=== PATIENT | female | born 1940 | race American Indian/Alaskan Native ===

== ENCOUNTER 2019-08-09 09:11 | Emergency (ER) | payer MEDICARE, SELFPAY ==
[2019-08-09] MEDS ORDERED: DEXTROSE 50% IN WATER (25GM) 50 ML SYRINGE IV ONE ×2 (09:51→10:22)
--- NOTE | 2019-08-09 09:52 | Cat Scan Report ---
CT HEAD WITHOUT CONTRAST HISTORY: neuro deficits <6hrs or sx present upon awakening. TECHNIQUE: Axial imaging performed from the skull apex through the skull base without the use of con trast. All CT scans at this location are performed using CT dose reduction for ALARA by means of aut omated exposure control. COMPARISON: None FINDINGS: Parenchyma: No acute intracranial hemorrhage or parenchymal abnormality.. Mild hypoattenuation thro ughout the white matter is noted and consistent with chronic microvascular ischemic disease. Ventricles: There is mild diffuse brain atrophy with commensurate ventricular enlargement which is l ikely age appropriate. Soft tissues: Soft tissues including the orbits appear normal. Bones: No acute osseous abnormality. Sinuses: Chronic mucoperiosteal thickening is noted in the left maxillary sinus. The remaining sinus es are clear. IMPRESSION: No acute abnormality. Age appropriate volume loss and chronic white matter changes. These findings were discussed with Viviana STANLEY in the emergency department at 0946 hours. Signer Name: Kaz Lindo Jr, MD Signed: 08/09/2019 9:47 AM Workstation Name: [id number]
--- NOTE | 2019-08-09 09:52 | Emergency Department Report ---
ED Neuro Deficit HPI - General Chief Complaint: Dental/Oral Stated Complaint: RT SIDE FACE NUMB/MIGRANE/WEAK Source: patient Mode of arrival: Ambulatory Limitations: No Limitations - History of Present Illness Initial Comments: [facility] Date of Service: 08/09/2019 09:30:58 Impression: angioedema Comments: 78 year old female who presents with lip swelling. Presentation is likely secondary to angioedema rather than acute stroke. Metrics: Last Known Well: 08/08/2019 22:00:00 [facility] Notification Time: 08/09/2019 09:30:10 Arrival Time: 08/09/2019 09:11:00 Stamp Time: 08/09/2019 09:30:58 Time First Login Attempt: 08/09/2019 09:37:00 Video Start Time: 08/09/2019 09:37:00 Symptoms: Lip swelling NIHSS Start Assessment Time: 08/09/2019 09:40:00 Patient is not a candidate for tPA. Patient was not deemed candidate for tPA thrombolytics because of Last Well Known Above 4.5 Hours. Video End Time: 08/09/2019 09:45:58 CT head was reviewed. Clinical Presentation is not Suggestive of Large Vessel Occlusive Disease, Patient is not a Candidate for Thrombectomy ED Physician notified of diagnostic impression and management plan on 08/09/2019 09:46:01 Our recommendations are outlined below. Recommendations: - Continue home antiplatelets and statin Dysphaghia Screen: Swallow Evaluation, Bedside NPO Until Swallow Evaluation DVT prophylaxis: Choice of Primary Team Disposition: Sign Out Sign Out: Discussed with Emergency Department Provider History of Present Illness: Patient is a 78 year old Female. Patient was brought by private transportation with symptoms of Lip swelling 78 year old female with a history of HTN on lisinopril, and prior stroke with residual right side weakness who presents to the ED because of facial swelling. Patient went to sleep normal last night and woke up this morning with swelling in the lip and eyes. There was no focal weakness noted. CT head was reviewed. Examination: 1A: Level of Consciousness - Alert; keenly responsive + 0 1B: Ask Month and Age - Both Questions Right + 0 1C: Blink Eyes & Squeeze Hands - Performs Both Tasks + 0 2: Test Horizontal Extraocular Movements - Normal + 0 3: Test Visual Marroquin - No Visual Loss + 0 4: Test Facial Palsy (Use Grimace if Obtunded) - Normal symmetry + 0 5A: Test Left Arm Motor Drift - No Drift for 10 Seconds + 0 5B: Test Right Arm Motor Drift - No Drift for 10 Seconds + 0 6A: Test Left Leg Motor Drift - No Drift for 5 Seconds + 0 6B: Test Right Leg Motor Drift - No Drift for 5 Seconds + 0 7: Test Limb Ataxia (FNF/Heel-Rock) - No Ataxia + 0 8: Test Sensation - Normal; No sensory loss + 0 9: Test Language/Aphasia - Normal; No aphasia + 0 10: Test Dysarthria - Normal + 0 11: Test Extinction/Inattention - No abnormality + 0 NIHSS Score: 0 Patient was informed the Neurology Consult would happen via TeleHealth consult by way of interactive audio and video telecommunications and consented to receiving care in this manner. Due to the immediate potential for life-threatening deterioration due to underlying acute neurologic illness, I spent 35 minutes providing critical care. This time includes time for face to face visit via telemedicine, review of medical records, imaging studies and discussion of findings with providers, the patient and/or family. Dr Chani [facility] Case [id number] - Related Data Home Medications: Home Medications Medication Instructions Recorded Confirmed Last Taken amLODIPine 10 mg PO DAILY 12/02/13 12/02/13 12/02/13 10:00 Previous Rx's Medication Instructions Recorded Last Taken Type Aspirin EC [Halfprin EC] 81 mg PO QDAY #30 tablet. 12/03/13 Unknown Rx Famotidine [Pepcid] 20 mg PO BID #60 tablet 12/03/13 Unknown Rx Simvastatin [Zocor] 10 mg PO QHS #30 tablet 12/03/13 Unknown Rx lisinopriL [Zestril TAB] 20 mg PO QDAY #30 tablet 12/03/13 Unknown Rx Allergies/Adverse Reactions: Allergies Allergy/AdvReac Type Severity Reaction Status Date / Time unknown antibiotic Allergy Unknown Uncoded 08/09/19 09:14 ED Review of Systems ROS: Stated complaint: RT SIDE FACE NUMB/MIGRANE/WEAK Other details as noted in HPI ED Past Medical Hx - Past Medical History Hx Hypertension: Yes - Surgical History Hx Appendectomy: Yes Additional Surgical History: tonsils removed - Social History Smoking Status: Current Every Day Smoker Substance Use Type: None - Medications Home Medications: Home Medications Medication Instructions Recorded Confirmed Last Taken Type amLODIPine 10 mg PO DAILY 12/02/13 12/02/13 12/02/13 10:00 History Aspirin EC [Halfprin EC] 81 mg PO QDAY #30 tablet. 12/03/13 Unknown Rx Famotidine [Pepcid] 20 mg PO BID #60 tablet 12/03/13 Unknown Rx Simvastatin [Zocor] 10 mg PO QHS #30 tablet 12/03/13 Unknown Rx lisinopriL [Zestril TAB] 20 mg PO QDAY #30 tablet 12/03/13 Unknown Rx ED Neuro Physical Exam - General Limitations: No Limitations Suspected Stroke: No - NIHSS Assessment Interval: Baseline 1a. Level of Consciousness: alert/keenly responsive 1b. LOC Questions: answers both correctly 1c. LOC Commands: performs tasks correctly 2. Best Gaze: normal 3. Visual: no visual loss 4. Facial Palsy: normal symmetrical movement 5b. Motor Arm Right: no drift 5a. Motor Arm Left: no drift 6a. Motor Leg Left: no drift 6b. Motor Leg Right: no drift 7. Limb Ataxia: absent 8. Sensory: normal 9. Best Language: no aphasia 10. Dysarthria: normal 11. Extinction/Inattention: no abnormality Total Score: 0 Stroke Severity: No Stroke Symptoms ED Course Vital Signs 08/09/19 09:21 Temperature 97.5 F L Pulse Rate 65 Respiratory 18 Rate Blood Pressure 172/79 O2 Sat by Pulse 95 Oximetry - Lab Data Lab Results 08/09/19 08/09/19 Range/Units 09:52 09:57 POC Glucose 46 L < 40 L (70-105) Critical care attestation.: If time is entered above; I have spent that time in minutes in the direct care of this critically ill patient, excluding procedure time. ED Disposition Clinical Impression: Lip swelling Disposition: OP ADMIT IP TO THIS HOSP Is pt being admited?: Yes Condition: Stable
[2019-08-09 10:05] LABS: Basophils % (Auto) 0.4 % (0.0-1.8); Hemoglobin 13.3 gm/dl (10.1-14.3); Lymphocytes # (Auto) 1.1 K/mm3 (1.2-5.4); Lymphocytes % (Auto) 19.4 % (13.4-35.0); Mean Corpuscular HGB Conc 32 % (30-34); Mean Corpuscular Volume 92 fl (79-97); Monocytes # (Auto) 0.4 K/mm3 (0.0-0.8); Monocytes % (Auto) 7.1 % (0.0-7.3); Platelet Count 246 K/mm3 (140-440); Red Blood Count 4.47 M/mm3 (3.65-5.03); Red Cell Distribution Width 15.5 % (13.2-15.2)
--- NOTE | 2019-08-09 10:11 | Emergency Department Report ---
ED General Adult HPI - General Chief complaint: Dental/Oral Stated complaint: RT SIDE FACE NUMB/MIGRANE/WEAK Time Seen by Provider: 08/09/19 10:04 Source: patient Mode of arrival: Ambulatory Limitations: No Limitations - History of Present Illness Initial comments: 78-year-old Afro-Russian female with a past medical history of hypertension, CVA with reported right-sided deficit, tobacco abuse presents to the emergency department complaining of waking right sided facial and lip swelling. She is denying any issues of evolving headache, weakness, dizziness. She reports no blurred vision. No tinnitus. No neck pain. No fever, chills, sweats, chest pain, palpitations, nausea, vomiting, rashes. States that her voice is normal she is able to eat and swallow without any difficulty. States she has been taking some of the same medical educations for quite some time until recently when her primary care provider adjusted her blood pressure medication starting her on a combination amlodipine and benazepril. She has been taking that medication for the last couple weeks and stated that she thought it was making her face feel little bit funny. Location: face, mouth Radiation: non-radiation Quality: dull Consistency: constant Improves with: none Worsens with: none Associated Symptoms: denies: confusion, chest pain, diaphoresis, loss of appetite, malaise, nausea/vomiting, shortness of breath, syncope, weakness - Related Data Previous Rx's Medication Instructions Recorded Last Taken Type Aspirin EC [Halfprin EC] 81 mg PO QDAY #30 tablet. 12/03/13 Unknown Rx Famotidine [Pepcid] 20 mg PO BID #60 tablet 12/03/13 Unknown Rx Simvastatin [Zocor] 10 mg PO QHS #30 tablet 12/03/13 Unknown Rx lisinopriL [Zestril TAB] 20 mg PO QDAY #30 tablet 12/03/13 Unknown Rx amLODIPine 10 mg PO DAILY #30 08/09/19 Unknown Rx Allergies Allergy/AdvReac Type Severity Reaction Status Date / Time unknown antibiotic Allergy Unknown Uncoded 08/09/19 09:14 ED Review of Systems ROS: Stated complaint: RT SIDE FACE NUMB/MIGRANE/WEAK Other details as noted in HPI Comment: All other systems reviewed and negative ED Past Medical Hx - Past Medical History Hx Hypertension: Yes - Surgical History Hx Appendectomy: Yes Additional Surgical History: tonsils removed - Social History Smoking Status: Current Every Day Smoker Substance Use Type: None - Medications Home Medications: Home Medications Medication Instructions Recorded Confirmed Last Taken Type Aspirin EC [Halfprin EC] 81 mg PO QDAY #30 tablet. 12/03/13 Unknown Rx Famotidine [Pepcid] 20 mg PO BID #60 tablet 12/03/13 Unknown Rx Simvastatin [Zocor] 10 mg PO QHS #30 tablet 12/03/13 Unknown Rx lisinopriL [Zestril TAB] 20 mg PO QDAY #30 tablet 12/03/13 Unknown Rx amLODIPine 10 mg PO DAILY #30 08/09/19 Unknown Rx ED Physical Exam - General Limitations: No Limitations General appearance: alert, in no apparent distress - Head Head exam: Present: atraumatic, normocephalic, other - Expanded Head Exam Expanded 1 - Swelling involving the lips bilaterally. Swelling, protrudes to the towards the right mandible region. Nontender. - Eye Eye exam: Present: normal appearance, PERRL, EOMI - ENT ENT exam: Present: mucous membranes moist, other (Severely eroded dentition with several missing. Airway patent no drooling tongue and uvula are midline.) - Neck Neck exam: Present: normal inspection, full ROM. Absent: tenderness, meningismus, lymphadenopathy - Respiratory Respiratory exam: Present: normal lung sounds bilaterally. Absent: respiratory distress - Cardiovascular Cardiovascular Exam: Present: regular rate, normal rhythm. Absent: systolic murmur, diastolic murmur, rubs, gallop - GI/Abdominal GI/Abdominal exam: Present: soft, normal bowel sounds. Absent: tenderness, guarding, rebound - Extremities Exam Extremities exam: Present: normal inspection - Back Exam Back exam: Present: normal inspection - Neurological Exam Neurological exam: Present: alert, oriented X3 - Psychiatric Psychiatric exam: Present: normal affect, normal mood - Skin Skin exam: Present: warm, dry, intact, normal color. Absent: rash ED Course Vital Signs 08/09/19 09:21 Temperature 97.5 F L Pulse Rate 65 Respiratory 18 Rate Blood Pressure 172/79 O2 Sat by Pulse 95 Oximetry - Consultations Consultation #1: 08/09/19 10:22 A call from teleradiology who advised that the CT scan showed a normal 78-year-old brain for Honey Alan at 9:47 AM Consultation #2: 08/09/19 10:[address] Marquez of tele-neurology who stated that Mr. Honey Alan looks great no stroke was present and that felt her sisters her symptoms were more chronic liver related. Discussed that the minimal droop/facial weakness was due to old stroke and that her current symptoms may be secondary to angioedema ED Medical Decision Making - Lab Data Result diagrams: 08/09/19 09:48 08/09/19 09:48 Critical care attestation.: If time is entered above; I have spent that time in minutes in the direct care of this critically ill patient, excluding procedure time. ED Disposition Clinical Impression: Angioedema Disposition: DC-01 TO HOME OR SELFCARE Is pt being admited?: No Does the pt Need Aspirin: No Condition: Stable Instructions: Angioedema (ED) Additional Instructions: Please return to the Emergency Department right away if you have any worsening or new shortness of breath, changes in your voice, tightness/itching in your mouth/throat, swelling, severe hives, chest pain, high fever. ?There is a very small chance of a recurrence of the allergic reaction, typically in the next 24 hours. If you see the same symptoms (rash, trouble breathing, vomiting, etc) return, come back to the Emergency Department immediately. Prescriptions: amLODIPine 10 mg PO DAILY #30 Referrals: PRIMARY CARE, [Primary Care Provider] - 3-5 Days (Please be sure to follow-up with your primary care provider as we discussed for further adjustments to your current medication regimen.)
[2019-08-09 10:18] LABS: INR 0.99 (0.87-1.13)
[2019-08-09 10:19] LABS: Partial Thromboplastin Time 35.3 Sec. (24.2-36.6)
[2019-08-09] MEDS ORDERED: methylPREDNISolone Sod Succinate 125 MG/2 ML INJ IV ONE (10:19)
[2019-08-09] MEDS ORDERED: diphenhydrAMINE 50 MG/ML VIAL IV STA (10:21)
[2019-08-09] MEDS ORDERED: FAMOTIDINE 20 MG TAB PO ONE (10:21)
[2019-08-09 10:24] LABS: BUN/Creatinine Ratio 15; Blood Urea Nitrogen 18 mg/dL (7-17); Calcium 9.3 mg/dL (8.4-10.2); Hemolysis Index 10
[2019-08-09 11:13] LABS: Alanine Aminotransferase 11 units/L (7-56)
[2019-08-09 11:17] LABS: Bilirubin,Direct < 0.2 mg/dL (0-0.2)
[2019-08-09 13:32] VITALS: BP 174/81
== END 2019-08-09 13:46 | disposition home or self-care (01) ==
LOC: ED 09:11
DX: T78.3XXA Angioneurotic edema, initial encounter (principal); I10 Essential (primary) hypertension; F17.200 Nicotine dependence, unspecified, uncomplicated; Z98.890 Other specified postprocedural states; Z88.1 Allergy status to other antibiotic agents
CPT/HCPCS: 36415; 70450; 80048; 80076; 82962; 83690; 84484; 85025; 85610; 85670; 85730; 93005; 93010; 96374; 96375; 99284; J1200; J2930

== ENCOUNTER 2019-08-10 11:41 | Emergency (ER) | payer MEDICARE ==
[2019-08-10 11:55] VITALS: BP 164/87
--- NOTE | 2019-08-10 12:05 | Event Note ---
ED Screening Note ED Screening Note: 78 yo treated for angioedema yesterday has lower facial swelling today. This initial assessment/diagnostic orders/clinical plan/treatment(s) is/are subject to change based on patients health status, clinical progression and re- assessment by fellow clinical providers in the ED. Further treatment and workup at subsequent clinical providers discretion. Patient/guardian urged not to elope from the ED as their condition may be serious if not clinically assessed and managed. Initial orders include: Needs assessment possible medications
[2019-08-10] MEDS ORDERED: FAMOTIDINE 20 MG/2 ML INJ IV ONE (12:55)
[2019-08-10] MEDS ORDERED: diphenhydrAMINE 50 MG/ML VIAL IV ONE (12:55)
[2019-08-10] MEDS ORDERED: dexAMETHasone 4 MG/ML VIAL IV ONE (12:56)
--- NOTE | 2019-08-10 15:05 | Emergency Department Report ---
ED General Adult HPI - General Chief complaint: Allergic Reaction Stated complaint: REACTION FROM MEDICATION Time Seen by Provider: 08/10/19 12:41 Source: patient Mode of arrival: Ambulatory Limitations: No Limitations - History of Present Illness Initial comments: This is a 78-year-old lady that was seen yesterday for presumed angioedema secondary to CHER inhibitor. She was given a prescription for amlodipine without the CHER inhibitor. She did not get that filled. She does not think that she took her cher inhibitor medication last night. However I am not entirely certain. I marked her bottle that contained the benazepril/amlodipine combination medication so she would not take it again. Patient presents with swelling approximately 1+ of her lower lip and mandibular area. There is no oral involvement. She denies dyspnea. -: Gradual, days(s) Location: face Consistency: intermittent Improves with: none Worsens with: none Associated Symptoms: denies other symptoms - Related Data Previous Rx's Medication Instructions Recorded Last Taken Type Aspirin EC [Halfprin EC] 81 mg PO QDAY #30 tablet. 12/03/13 Unknown Rx Famotidine [Pepcid] 20 mg PO BID #60 tablet 12/03/13 Unknown Rx Simvastatin [Zocor] 10 mg PO QHS #30 tablet 12/03/13 Unknown Rx lisinopriL [Zestril TAB] 20 mg PO QDAY #30 tablet 12/03/13 Unknown Rx amLODIPine 10 mg PO DAILY #30 08/09/19 Unknown Rx Allergies Allergy/AdvReac Type Severity Reaction Status Date / Time unknown antibiotic Allergy Unknown Uncoded 08/09/19 09:14 ED Review of Systems ROS: Stated complaint: REACTION FROM MEDICATION Other details as noted in HPI Constitutional: denies: chills, fever Eyes: denies: eye pain, eye discharge, vision change ENT: denies: ear pain, throat pain Respiratory: denies: cough, shortness of breath, wheezing Cardiovascular: denies: chest pain, palpitations Endocrine: no symptoms reported Gastrointestinal: denies: abdominal pain, nausea, diarrhea Genitourinary: denies: urgency, dysuria, discharge Musculoskeletal: denies: back pain, joint swelling, arthralgia Skin: as per HPI. denies: rash, lesions Neurological: denies: headache, weakness, paresthesias Psychiatric: denies: anxiety, depression Hematological/Lymphatic: denies: easy bleeding, easy bruising ED Past Medical Hx - Past Medical History Hx Hypertension: Yes - Surgical History Hx Appendectomy: Yes Additional Surgical History: tonsils removed - Social History Smoking Status: Never Smoker Substance Use Type: None - Medications Home Medications: Home Medications Medication Instructions Recorded Confirmed Last Taken Type Aspirin EC [Halfprin EC] 81 mg PO QDAY #30 tablet. 12/03/13 Unknown Rx Famotidine [Pepcid] 20 mg PO BID #60 tablet 12/03/13 Unknown Rx Simvastatin [Zocor] 10 mg PO QHS #30 tablet 12/03/13 Unknown Rx lisinopriL [Zestril TAB] 20 mg PO QDAY #30 tablet 12/03/13 Unknown Rx amLODIPine 10 mg PO DAILY #30 08/09/19 Unknown Rx ED Physical Exam - General Limitations: No Limitations General appearance: alert, in no apparent distress - Head Head exam: Present: atraumatic, normocephalic - Eye Eye exam: Present: normal appearance. Absent: scleral icterus - ENT ENT exam: Present: normal orophraynx, mucous membranes moist, other (1+ edema of the lower brito area sparing the oromucosa of the lip and oropharynx) - Neck Neck exam: Present: normal inspection - Respiratory Respiratory exam: Present: normal lung sounds bilaterally. Absent: respiratory distress - Cardiovascular Cardiovascular Exam: Present: regular rate, normal rhythm. Absent: systolic murmur, diastolic murmur, rubs, gallop - GI/Abdominal GI/Abdominal exam: Present: soft, normal bowel sounds. Absent: distended, tenderness, guarding, rebound, rigid - Extremities Exam Extremities exam: Present: normal inspection - Back Exam Back exam: Present: normal inspection - Neurological Exam Neurological exam: Present: alert, oriented X3, CN II-XII intact. Absent: motor sensory deficit - Psychiatric Psychiatric exam: Present: normal affect, normal mood - Skin Skin exam: Present: warm, dry, intact, normal color. Absent: rash ED Course Vital Signs 08/10/19 11:54 Temperature 97.7 F Pulse Rate 67 Respiratory 16 Rate Blood Pressure 164/87 O2 Sat by Pulse 98 Oximetry - Reevaluation(s) Reevaluation #1: Patient was given Decadron Benadryl and Pepcid. She improved again. She requested discharge. She was instructed not to take CHER inhibitors again in the future. 08/10/19 15:05 Critical care attestation.: If time is entered above; I have spent that time in minutes in the direct care of this critically ill patient, excluding procedure time. 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 Return to the emergency department any acute change or problem. Fill your prescription from yesterday. Follow-up with your primary care provider. Referrals: PRIMARY CAREMD [Primary Care Provider] - 3-5 Days Time of Disposition: 15:06
== END 2019-08-10 15:45 | disposition home or self-care (01) ==
LOC: ED 11:41
DX: T78.3XXA Angioneurotic edema, initial encounter (principal); Z98.890 Other specified postprocedural states; Z90.49 Acquired absence of other specified parts of digestive tract; Z79.899 Other long term (current) drug therapy; T88.7XXA Unspecified adverse effect of drug or medicament, initial encounter
CPT/HCPCS: 96374; 96375; 99283; J1100; J1200